=== PATIENT | female | born 1980 | race American Indian/Alaskan Native ===

== ENCOUNTER 2020-11-02 12:58 | Observation (INO) | payer MEDICARE ==
--- NOTE | 2020-11-02 13:02 | Emergency Department Report ---
HPI - General Time Seen by Provider: 11/02/20 12:59 - HPI HPI: This is a 39-year-old -[place] female presents to the emergency department via EMS from home with the complaint of slurred speech, left-sided facial droop, left-sided weakness and numbness. Apparently the patient was at [facility] yesterday for generalized weakness and some left arm numbness. EMS says that she was evaluated and discharged home with the diagnosis of anxiety. Family told EMS that she suddenly went "limp" about 30 minutes prior to the EMS call with these new symptoms. 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 Patient has never been to this facility previously. She did not receive anything in route with EMS. It does not sound like the patient will be a TPA candidate secondary to her anticoagulation, but a code stroke has been initiated. ED Past Medical Hx - Medications Home Medications: Home Medications Medication Instructions Recorded Confirmed Last Taken Type Famotidine [Pepcid] 20 mg PO BID 11/02/20 11/02/20 11/01/20 History LORazepam [Ativan] 0.5 mg PO Q6HR PRN 11/02/20 11/02/20 11/02/20 History Rivaroxaban [Xarelto] 20 mg PO QDAY 11/02/20 11/02/20 11/02/20 10:00 History Trazodone HCl [traZODone] 150 mg PO BID 11/02/20 11/02/20 11/01/20 History ED Review of Systems ROS: Stated complaint: STROKE Other details as noted in HPI Comment: All other systems reviewed and negative Constitutional: weakness. denies: chills, fever Eyes: denies: eye pain, vision change ENT: denies: ear pain, throat pain Respiratory: denies: cough, shortness of breath Cardiovascular: denies: chest pain, palpitations Gastrointestinal: denies: abdominal pain, vomiting Genitourinary: denies: dysuria, discharge Musculoskeletal: denies: back pain, arthralgia Skin: denies: rash, lesions Neurological: weakness, numbness, other (Facial droop, slurred speech) Physical Exam - Physical Exam Physical Exam: GENERAL: The patient is well-developed well-nourished. HENT: Normocephalic. Atraumatic. Patient has moist mucous membranes. EYES: Extraocular motions are intact. Pupils equal reactive to light bilaterally. NECK: Supple. Trachea is midline. CHEST/LUNGS: Clear to auscultation. There is no respiratory distress noted. HEART/CARDIOVASCULAR: Regular. There is no tachycardia. There is no murmur. ABDOMEN: Abdomen is soft, nontender. Patient has normal bowel sounds. There is no abdominal distention. SKIN: Skin is warm and dry. NEURO: The patient is awake, alert, and oriented. The patient is cooperative. Subjective decreased sensation to the left side of the face and left arm when compared to the right. There is left-sided nasolabial fold paresis. Dysa rthria. Significant left-sided weakness. MUSCULOSKELETAL: There is no tenderness or deformity. ED Course - Consultations Consultation #1: 11/02/20 13:39 Patient was seen by the telemedicine neurologist, Dr. Garcia. She agrees that the patient is not a TPA candidate as she is anticoagulated. Assuming negative CT angiography studies, the patient should be admitted for further stroke work- up including MRI. ED Medical Decision Making - Lab Data Result diagrams: 11/02/20 13:16 11/02/20 13:16 Lab Results 11/02/20 11/02/20 11/02/20 Range/Units 13:16 13:16 13:16 WBC 5.8 (4.5-11.0) K/mm3 RBC 4.77 (3.65-5.03) M/mm3 Hgb 13.6 (10.1-14.3) gm/dl Hct 39.4 (30.3-42.9) % MCV 83 (79-97) fl MCH 28 (28-32) pg MCHC 35 H (30-34) % RDW 17.6 H (13.2-15.2) % Plt Count 176 (140-440) K/mm3 Lymph % (Auto) 23.5 (13.4-35.0) % [place] % (Auto) 9.1 H (0.0-7.3) % Eos % (Auto) 1.5 (0.0-4.3) % Baso % (Auto) 0.5 (0.0-1.8) % Lymph # (Auto) 1.4 (1.2-5.4) K/mm3 [place] # (Auto) 0.5 (0.0-0.8) K/mm3 Eos # (Auto) 0.1 (0.0-0.4) K/mm3 Baso # (Auto) 0.0 (0.0-0.1) K/mm3 Seg Neutrophils % 65.4 (40.0-70.0) % Seg Neutrophils # 3.8 (1.8-7.7) K/mm3 PT 21.8 H (12.2-14.9) Sec. INR 1.84 H (0.87-1.13) APTT 34.8 (24.2-36.6) Sec. Thrombin Time 16.8 (15.1-19.6) Sec. Sodium 135 L (137-145) mmol/L Potassium 3.8 (3.6-5.0) mmol/L Chloride 103.0 (98-107) mmol/L Carbon Dioxide 22 (22-30) mmol/L Anion Gap 14 mmol/L BUN 10 (7-17) mg/dL Creatinine 0.6 (0.6-1.2) mg/dL Estimated GFR > 60 ml/min BUN/Creatinine Ratio 17 % Glucose 88 (65-100) mg/dL Calcium 8.9 (8.4-10.2) mg/dL Total Bilirubin 0.80 (0.1-1.2) mg/dL AST 17 (5-40) units/L ALT 11 (7-56) units/L Alkaline Phosphatase 45 (35-129) units/L Total Creatine Kinase 100 (30-135) units/L CK-MB (CK-2) < 1.0 (0.0-4.0) ng/mL CK-MB (CK-2) Rel Index 1.0 (0-4) Troponin T < 0.010 (0.00-0.029) ng/mL Total Protein 6.5 (6.3-8.2) g/dL Albumin 4.2 (3.9-5) g/dL Albumin/Globulin Ratio 1.8 % TSH (0.270-4.200) mlU/mL Plasma/Serum Alcohol (0-0.07) % 11/02/20 11/02/20 Range/Units 13:16 13:16 WBC (4.5-11.0) K/mm3 RBC (3.65-5.03) M/mm3 Hgb (10.1-14.3) gm/dl Hct (30.3-42.9) % MCV (79-97) fl MCH (28-32) pg MCHC (30-34) % RDW (13.2-15.2) % Plt Count (140-440) K/mm3 Lymph % (Auto) (13.4-35.0) % [place] % (Auto) (0.0-7.3) % Eos % (Auto) (0.0-4.3) % Baso % (Auto) (0.0-1.8) % Lymph # (Auto) (1.2-5.4) K/mm3 [place] # (Auto) (0.0-0.8) K/mm3 Eos # (Auto) (0.0-0.4) K/mm3 Baso # (Auto) (0.0-0.1) K/mm3 Seg Neutrophils % (40.0-70.0) % Seg Neutrophils # (1.8-7.7) K/mm3 PT (12.2-14.9) Sec. INR (0.87-1.13) APTT (24.2-36.6) Sec. Thrombin Time (15.1-19.6) Sec. Sodium (137-145) mmol/L Potassium (3.6-5.0) mmol/L Chloride (98-107) mmol/L Carbon Dioxide (22-30) mmol/L Anion Gap mmol/L BUN (7-17) mg/dL Creatinine (0.6-1.2) mg/dL Estimated GFR ml/min BUN/Creatinine Ratio % Glucose (65-100) mg/dL Calcium (8.4-10.2) mg/dL Total Bilirubin (0.1-1.2) mg/dL AST (5-40) units/L ALT (7-56) units/L Alkaline Phosphatase (35-129) units/L Total Creatine Kinase (30-135) units/L CK-MB (CK-2) (0.0-4.0) ng/mL CK-MB (CK-2) Rel Index (0-4) Troponin T (0.00-0.029) ng/mL Total Protein (6.3-8.2) g/dL Albumin (3.9-5) g/dL Albumin/Globulin Ratio % TSH 0.786 (0.270-4.200) mlU/mL Plasma/Serum Alcohol < 0.01 (0-0.07) % - EKG Data -: EKG Interpreted by Me EKG shows normal: sinus rhythm, axis, intervals, QRS complexes, ST-T waves Rate: normal - EKG Data When compared to previous EKG there are: previous EKG unavailable Interpretation: normal EKG - Radiology Data Radiology results: report reviewed NONENHANCED CT SCAN OF THE BRAIN: INDICATION: CODE STROKE LT SIDE WEAKNESS, FACIAL DROOP SLURRED SPEECH X1DAY [id number]. TECHNIQUE: Routine CT head without contrast. Sagittal and coronal reformatted images were obtained. All CT scans at this location are performed using CT dose reduction for ALARA by means of automated exposure control. COMPARISON: None. FINDINGS: BRAIN / INTRACRANIAL CONTENTS: Hemorrhage: No intracranial hemorrhage; no subarachnoid hemorrhage Stroke mimics: No subdural or epidural hematoma or space taking lesion Acute/subacute territorial infarction: Li-white matter interface: No blurring; normal Insular cortex: Normal Basal ganglia: Normal Wedge shaped parenchymal low density area: Not present Cortical sulci: Not effaced Lacunar infarctions: No acute lacunae Vasculopathy: Dense middle cerebral artery sign: Not present Internal carotid artery terminus: Normal Basilar artery:Normal Middle cerebral artery branches in the sylvian fissure (Dot sign): Normal Calcified embolus: Not present ASPECT score: 10 Chronic lesions:None White matter: Periventricular and deep hemispheric white matter normal Craniocervical junction: No significant abnormality Orbits: No significant abnormality Paranasal sinuses/mastoids:No significant abnormality Additional findings: None IMPRESSION: Intracerebral hemorrhage; no stroke mimics No acute subacute infarction CT angio head INDICATION / CLINICAL INFORMATION: 39 years Female; stroke sx. TECHNIQUE: Thin cut axial images obtained through the head during IV bolus contrast administration. Sagittal, coronal, and 3 plane MIP reconstructions performed by the technologist. NASCET type criteria used evaluate stenoses. Automated exposure control utilized for radiation reduction purposes. COMPARISON: None available. FINDINGS: INTERNAL CAROTID ARTERIES: No significant narrowing appreciated. VERTEBROBASILAR SYSTEM: No significant narrowing appreciated. DISTAL BRANCHES: Distal branches of the anterior, middle, and posterior cerebral arteries are fairly symmetric in appearance and number. ANEURYSM: None identified. ADDITIONAL FINDINGS: Remainder of the surrounding soft tissues are grossly normal. IMPRESSION: No significant abnormality on this CTA of the head. CT angio neck HISTORY: stroke sx COMPARISON: None. TECHNIQUE: Routine CTA of the neck is performed. 3-D/MIP reformats were postprocessed. Percentage stenosis is determined by direct quantitative measurements of diseased internal carotid artery diameter compared with normal distal internal carotid artery reference segments or by criteria similar to NASCET where applicable. All CT scans at this location are performed using CT dose reduction for ALARA by means of automated exposure control. FINDINGS: Aortic arch: No significant abnormality. Cervical vertebral arteries: No occlusion or hemodynamically significant stenosis. Common Carotid arteries: No occlusion or hemodynamically significant stenosis. Internal carotid arteries: No occlusion or hemodynamically significant stenosis. Additional findings: Mild paraseptal emphysema. IMPRESSION: 1. No occlusion or significant stenosis. - Medical Decision Making This patient presents to the emergency department with a complaint of left-sided weakness and numbness, left-sided facial droop, slurred speech. Patient had some numbness to the left arm throughout yesterday, but the rest of the symptoms started about 30 minutes prior to presentation. However, given the patient's history of multiple PE and DVT and her anticoagulation on Xarelto, the patient is not a TPA candidate. CT of the head without contrast did not show any hemorrhage, large vessel occlusion, or any other acute process. The patient also had a CT angiography of the head and neck that did not show any thrombus, significant stenosis, or any other acute process as well. The patient was seen by the telemedicine neurologist who agrees that the patient is not a TPA candidate and gave the patient an NIH stroke scale of 7. She recommends admission for MRI and further stroke work-up. The patient's labs have been mostly unremarkable including CBC, metabolic panel, blood alcohol level, normal thyroid function. Patient will be admitted to the hospital for further evaluation and treatment was accepted for admission by the hospitalist, Dr. Butcher. Critical Care Time: Yes Critical care time in (mins) excluding proc time.: 31 Critical care attestation.: If time is entered above; I have spent that time in minutes in the direct care of this critically ill patient, excluding procedure time. Critical care time spent on this patient in doing her initial evaluation, multiple reevaluations, o rdering and interpretation of labs and imaging, discussion with the telemedicine neurologist, and multiple discussions with the patient. Critical Care Time: 31 minutes ED Disposition Clinical Impression: Left-sided weakness, Dysarthria, Stroke-like symptoms Hypertension Qualifiers: Hypertension type: essential hypertension Qualified Code(s): I10 - Essential (primary) hypertension Disposition: DC-01 TO HOME OR SELFCARE Is pt being admited?: No Condition: Serious Time of Disposition: 15:03
--- NOTE | 2020-11-02 13:31 | Cat Scan Report ---
NONENHANCED CT SCAN OF THE BRAIN: INDICATION: CODE STROKE LT SIDE WEAKNESS, FACIAL DROOP SLURRED SPEECH X1DAY [id number]. TECHNIQUE: Routine CT head without contrast. Sagittal and coronal reformatted images were obtained. A ll CT scans at this location are performed using CT dose reduction for ALARA by means of automated ex posure control. COMPARISON: None. FINDINGS: BRAIN / INTRACRANIAL CONTENTS: Hemorrhage: No intracranial hemorrhage; no subarachnoid hemorrhage Stroke mimics: No subdural or epidural hematoma or space taking lesion Acute/subacute territorial infarction: Li-white matter interface: No blurring; normal Insular cortex: Normal Basal ganglia: Normal Wedge shaped parenchymal low density area: Not present Cortical sulci: Not effaced Lacunar infarctions: No acute lacunae Vasculopathy: Dense middle cerebral artery sign: Not present Internal carotid artery terminus: Normal Basilar artery:Normal Middle cerebral artery branches in the sylvian fissure (Dot sign): Normal Calcified embolus: Not present ASPECT score: 10 Chronic lesions:None White matter: Periventricular and deep hemispheric white matter normal Craniocervical junction: No significant abnormality Orbits: No significant abnormality Paranasal sinuses/mastoids:No significant abnormality Additional findings: None IMPRESSION: Intracerebral hemorrhage; no stroke mimics No acute subacute infarction This exam was performed as part of a code stroke protocol. The exam was completed at [facility] on 11/02/2020 12:21 PM. The exam was reviewed at 12:25 PM and ER physician was notifi ed at 12:26 PM. Signer Name: Virgilio Lowe MD Signed: 11/02/2020 1:26 PM Workstation Name: [id number]
[2020-11-02 13:38] LABS: Basophils % (Auto) 0.5 % (0.0-1.8); Eosinophils # (Auto) 0.1 K/mm3 (0.0-0.4); Eosinophils % (Auto) 1.5 % (0.0-4.3); Hematocrit 39.4 % (30.3-42.9); Hemoglobin 13.6 gm/dl (10.1-14.3); Lymphocytes # (Auto) 1.4 K/mm3 (1.2-5.4); Lymphocytes % (Auto) 23.5 % (13.4-35.0); Mean Corpuscular HGB Conc 35 % (30-34); Mean Corpuscular Volume 83 fl (79-97); Monocytes # (Auto) 0.5 K/mm3 (0.0-0.8); Monocytes % (Auto) 9.1 % (0.0-7.3); Platelet Count 176 K/mm3 (140-440); Red Blood Count 4.77 M/mm3 (3.65-5.03); Red Cell Distribution Width 17.6 % (13.2-15.2)
--- NOTE | 2020-11-02 13:38 | Cat Scan Report ---
CT angio head INDICATION / CLINICAL INFORMATION: 39 years Female; stroke sx. TECHNIQUE: Thin cut axial images obtained through the head during IV bolus contrast administration. S agittal, coronal, and 3 plane MIP reconstructions performed by the technologist. NASCET type criteria used evaluate stenoses. Automated exposure control utilized for radiation reduction purposes. COMPARISON: None available. FINDINGS: INTERNAL CAROTID ARTERIES: No significant narrowing appreciated. VERTEBROBASILAR SYSTEM: No significant narrowing appreciated. DISTAL BRANCHES: Distal branches of the anterior, middle, and posterior cerebral arteries are fairly symmetric in appearance and number. ANEURYSM: None identified. ADDITIONAL FINDINGS: Remainder of the surrounding soft tissues are grossly normal. IMPRESSION: No significant abnormality on this CTA of the head. Signer Name: Josue Ferris MD, III Signed: 11/02/2020 1:34 PM Workstation Name: [id number]
--- NOTE | 2020-11-02 13:49 | Cat Scan Report ---
CT angio neck HISTORY: stroke sx COMPARISON: None. TECHNIQUE: Routine CTA of the neck is performed. 3-D/MIP reformats were postprocessed. Percentage st enosis is determined by direct quantitative measurements of diseased internal carotid artery diameter compared with normal distal internal carotid artery reference segments or by criteria similar to SAMMY CET where applicable. All CT scans at this location are performed using CT dose reduction for ALARA b y means of automated exposure control. FINDINGS: Aortic arch: No significant abnormality. Cervical vertebral arteries: No occlusion or hemodynamically significant stenosis. Common Carotid arteries: No occlusion or hemodynamically significant stenosis. Internal carotid arteries: No occlusion or hemodynamically significant stenosis. Additional findings: Mild paraseptal emphysema. IMPRESSION: 1. No occlusion or significant stenosis. Signer Name: Adan Goss MD Signed: 11/02/2020 1:44 PM Workstation Name: [id number]
[2020-11-02 13:55] LABS: INR 1.84 (0.87-1.13); Partial Thromboplastin Time 34.8 Sec. (24.2-36.6); Thrombin Time 16.8 Sec. (15.1-19.6)
[2020-11-02 13:56] LABS: Alanine Aminotransferase 11 units/L (7-56); Albumin 4.2 g/dL (3.9-5); Blood Urea Nitrogen 10 mg/dL (7-17); Calcium 8.9 mg/dL (8.4-10.2); Hemolysis Index 9
[2020-11-02 13:57] LABS: BUN/Creatinine Ratio 17; Creatine Kinase MB < 1.0 ng/mL (0.0-4.0)
[2020-11-02] MEDS ORDERED: MORPHINE 4 MG/1 ML INJ IV ONE (14:42)
[2020-11-02] MEDS ORDERED: ASPIRIN 81 MG TAB CHEW PO ONE (15:08)
--- NOTE | 2020-11-02 15:23 | Emergency Department Report ---
Blank Doc - Documentation Documentation: [facility] Consult Note # Demographics Consult Type: Acute Stroke Level 2 (4.5-24 hrs) Patient Location: Emergency Room First Name: Carolyn Last Name: Darryl Date of : 1980 Age: 39 Gender: Female Time of Initial Page ( Time): 11/02/2020, 13:00 Time of Return Call ( Time): 11/02/2020, 13:01 # HPI History: 39yo F presents after being at a different hospital yesterday fo left arm numbness and gen weakness. CT done, then d/c. diagnosed with anxiety. then today was noted to "go limp". having left sided weakness and numbness, dysarthria. pt reprots she felt like she was having difficulty breathing. she had a headache. Last Known Normal: I have collected independent history specific to time last normal or last known well. We have collaborated with the provider and at this time, we have the most current timeline with the information that is available. # Scores Time of exam and NIHSS (): 11/02/2020, 13:27 Level of Consciousness 1a: [0] = Alert; keenly responsive LOC Questions 1b: [0] = Answers both questions correctly LOC Commands 1c: [0] = Performs both tasks correctly Best Gaze 2: [0] = Normal Visual 3: [0] = No visual loss Facial Palsy 4: [2] = Partial paralysis Motor Arm Left 5a: [2] = Some effort against gravity Motor Arm Right 5b: [0] = No drift Motor Leg Left 6a: [2] = Some effort against gravity Motor Leg Right 6b: [0] = No drift Limb Ataxia 7: [0] = Absent Sensory 8: [1] = [id number] sensory loss Best Language 9: [0] = No aphasia Dysarthria 10: [0] = Normal Extinction and Inattention 11: [0] = No abnormality NIHSS Total: 7 # Exam Motor: appears to given inconsistent effort in the left arm and leg. strong left leg pushing into the bed when lifting her right leg. # PMH-FH-SH Past Medical History: DVT/PE Medications: NOAC # Assessment Impression: Stroke Mimic this is not a TIA if MRI negative # Plan Thrombolytic/Intervention: NOT IV Thrombolytic or IA Intervention Thrombolytic Exclusion: > 4.5 hours Intraarterial Exclusion: clinically consistent with small vessel disease Imaging: (urgency: routine): MRI Brain with AND without contrast Other: would not pursue stroke work-up if MRI is negative I have discussed my recommendations with the referring provider Additional Recommendations: Further work-up based on MRI results # Logistics Telemedicine: Interactive 2 way audio and visual telecommunication technology was utilized during this visit Electronically signed at 11/02/2020 13:35 (Eastern Time) by Daisha Garcia DO
[2020-11-02] MEDS ORDERED: IBUPROFEN 600 MG TAB PO PRN (22:24)
[2020-11-03] MEDS ORDERED: LORazepam 0.5 MG TAB PO PRN (00:13)
[2020-11-03] MEDS ORDERED: oxyCODONE /ACETAMINOPHEN 5-325MG TAB PO PRN (00:15)
[2020-11-03] MEDS ORDERED: ONDANSETRON 4 MG/2 ML INJ IV PRN (00:15)
[2020-11-03] MEDS ORDERED: ACETAMINOPHEN 325 MG TAB PO PRN (00:15)
[2020-11-03] MEDS: traZODone 100 MG TAB PO SCH ×3 (00:25→21:27)
[2020-11-03] MEDS: FAMOTIDINE 20 MG TAB PO SCH ×3 (00:25→21:26)
[2020-11-03] MEDS: HYDROmorphone 1 MG/1 ML INJ IV PRN ×3 (00:40→18:16)
[2020-11-03] MEDS: NACL 0.45%/KCL 20 MEQ 20 MEQ/1,000 ML BAG IV SCH ×2 (00:56→10:49)
[2020-11-03 01:32] LABS: Bacteria,Urine 2+ /HPF (Negative); Bilirubin,Urine NEG (Negative); Blood,Urine NEG (Negative); Color,Urine Yellow (Yellow); Protein,Urine <15 mg/dL mg/dL (Negative); RBC,Urine < 1.0 /HPF (0.0-6.0)
[2020-11-03 01:39] LABS: Amphetamine Screen,Urine Negative; Benzodiazepines Screen,Urine Negative; Cocaine Screen,Urine Negative; Methadone Screen,Urine Negative; Opiate Screen,Urine Negative
[2020-11-03 01:51] LABS: Cannabinoid Screen,Urine Positive
[2020-11-03 05:04] LABS: Basophils % (Auto) 0.5 % (0.0-1.8); Eosinophils # (Auto) 0.1 K/mm3 (0.0-0.4); Eosinophils % (Auto) 2.4 % (0.0-4.3); Hematocrit 39.5 % (30.3-42.9); Hemoglobin 13.6 gm/dl (10.1-14.3); Lymphocytes # (Auto) 2.1 K/mm3 (1.2-5.4); Mean Corpuscular HGB Conc 34 % (30-34); Mean Corpuscular Volume 84 fl (79-97); Monocytes # (Auto) 0.6 K/mm3 (0.0-0.8); Monocytes % (Auto) 11.7 % (0.0-7.3); Platelet Count 173 K/mm3 (140-440); Red Cell Distribution Width 17.9 % (13.2-15.2)
[2020-11-03 05:30] LABS: Alanine Aminotransferase 12 units/L (7-56); Albumin 4.2 g/dL (3.9-5); Blood Urea Nitrogen 10 mg/dL (7-17); Hemolysis Index 22
[2020-11-03 05:37] LABS: BUN/Creatinine Ratio 17
--- NOTE | 2020-11-03 07:23 | History and Physical Report ---
History of Present Illness Date of examination: 11/02/20 Date of admission: 11/02/20 15:03 Chief complaint: Left-sided weakness since yesterday afternoon. History of present illness: 39-year-old female with no significant past medical history except GERD comes in for left-sided facial droop and left-sided weakness and numbness since yesterday. Patient went to [facility] and was discharged after being evaluated. Patient comes back to [facility] saying that she has a walking with difficulty. No fever or chills. No history of strokes or coronary artery disease the past. Patient also had slurred speech since yesterday. Intermittent in nature. No diplopia no nasal regurgitation of fluids. No seizures. Review of Systems ROS: Stated complaint: STROKE Other details as noted in HPI Comment: All other systems reviewed and negative Constitutional: weakness. denies: chills, fever Eyes: denies: eye pain, vision change ENT: denies: ear pain, throat pain Respiratory: denies: cough, shortness of breath Cardiovascular: denies: chest pain, palpitations Gastrointestinal: denies: abdominal pain, vomiting Genitourinary: denies: dysuria, discharge Musculoskeletal: denies: back pain, arthralgia Skin: denies: rash, lesions Neurological: weakness, numbness, other (Facial droop, slurred speech) Past History Past Medical History: GERD, other (Generalized anxiety disorder and depression.) Past Surgical History: No surgical history Social history: lives with family, full code Family history: hypertension Medications and Allergies Allergies Allergy/AdvReac Type Severity Reaction Status Date / Time No Known Allergies Allergy Unverified 11/02/20 13:51 Home Medications Medication Instructions Recorded Confirmed Last Taken Type Famotidine [Pepcid] 20 mg PO BID 11/02/20 11/02/20 11/01/20 History LORazepam [Ativan] 0.5 mg PO Q6HR PRN 11/02/20 11/02/20 11/02/20 History Rivaroxaban [Xarelto] 20 mg PO QDAY 11/02/20 11/02/20 11/02/20 10:00 History Trazodone HCl [traZODone] 150 mg PO BID 11/02/20 11/02/20 11/01/20 History Active Meds: Active Medications Acetaminophen (Acetaminophen 325 Mg Tab) 650 mg PO Q4H PRN PRN Reason: Pain MILD(1-3)/Fever >100.5/ROBLES Famotidine (Famotidine 20 Mg Tab) 20 mg PO BID [facility] Last Admin: 11/03/20 00:25 Dose: 20 mg Documented by: Hydromorphone HCl (Hydromorphone 1 Mg/1 Ml Inj) 0.5 mg IV Q3H PRN PRN Reason: Pain , Severe (7-10) Last Admin: 11/03/20 00:40 Dose: 0.5 mg Documented by: Potassium Chloride/Sodium Chloride (Ns 0.45/Kcl 20meq) 20 meq in 1,000 mls @ 100 mls/hr IV DIRECT [facility] Last Admin: 11/03/20 00:56 Dose: 100 mls/hr Documented by: Ibuprofen (Ibuprofen 600 Mg Tab) 600 mg PO Q6H PRN PRN Reason: Pain, Mild (1-3) Last Admin: 11/02/20 22:36 Dose: 600 mg Documented by: Lorazepam (Lorazepam 0.5 Mg Tab) 0.5 mg PO Q6H PRN PRN Reason: Anxiety Ondansetron HCl (Ondansetron 4 Mg/2 Ml Inj) 4 mg IV Q8H PRN PRN Reason: Nausea And Vomiting Oxycodone/Acetaminophen (Oxycodone /Acetaminophen 5-325mg Tab) 1 tab PO Q6H PRN PRN Reason: Pain, Moderate (4-6) Rivaroxaban (Rivaroxaban 20 Mg Tab) 20 mg PO QDAY [facility] Sodium Chloride (Sodium Chloride 0.9% 10 Ml Flush Syringe) 10 ml IV BID [facility] Last Admin: 11/03/20 00:59 Dose: 10 ml Documented by: Sodium Chloride (Sodium Chloride 0.9% 10 Ml Flush Syringe) 10 ml IV PRN PRN PRN Reason: LINE FLUSH Trazodone HCl (Trazodone 100 Mg Tab) 150 mg PO BID [facility] Last Admin: 11/03/20 00:25 Dose: 150 mg Documented by: Exam - Constitutional Vitals: Temp Pulse Resp BP Pulse Ox 98.5 F 65 18 125/83 100 11/03/20 03:45 11/03/20 03:45 11/03/20 03:45 11/03/20 03:45 11/03/20 03:45 General appearance: Present: no acute distress, well-nourished - EENT Eyes: Present: PERRL ENT: hearing intact, clear oral mucosa - Neck Neck: Present: supple, normal ROM - Respiratory Respiratory effort: normal Respiratory: bilateral: CTA - Cardiovascular Heart rate: 78 Rhythm: regular Heart Sounds: Present: S1 & S2. Absent: rub, click - Extremities Extremities: pulses symmetrical, No edema Peripheral Pulses: within normal limits - Abdominal General gastrointestinal: Present: soft, non-tender, non-distended, normal bowel sounds Female genitourinary: Present: normal - Integumentary Integumentary: Present: clear, warm, dry - Musculoskeletal Musculoskeletal: left sided weakness - Psychiatric Psychiatric: appropriate mood/affect, intact judgment & insight - Neurologic Neurologic: CNII-XII intact, focal deficits (Left-sided weakness present. 4/5 power in both left upper and left lower extremity.), moves all extremities - Allied Health Allied health notes reviewed: nursing, case management HEART Score - HEART Score Troponin: Troponin T < 0.010 ng/mL (0.00-0.029) 11/02/20 13:16 Results - Labs CBC & Chem 7: 11/03/20 04:32 11/03/20 04:32 Labs: Laboratory Last Values WBC 5.0 K/mm3 (4.5-11.0) 11/03/20 04:32 RBC 4.70 M/mm3 (3.65-5.03) 11/03/20 04:32 Hgb 13.6 gm/dl (10.1-14.3) 11/03/20 04:32 Hct 39.5 % (30.3-42.9) 11/03/20 04:32 MCV 84 fl (79-97) 11/03/20 04:32 MCH 29 pg (28-32) 11/03/20 04:32 MCHC 34 % (30-34) 11/03/20 04:32 RDW 17.9 % (13.2-15.2) H 11/03/20 04:32 Plt Count 173 K/mm3 (140-440) 11/03/20 04:32 Lymph % (Auto) 42.0 % (13.4-35.0) H 11/03/20 04:32 [place] % (Auto) 11.7 % (0.0-7.3) H 11/03/20 04:32 Eos % (Auto) 2.4 % (0.0-4.3) 11/03/20 04:32 Baso % (Auto) 0.5 % (0.0-1.8) 11/03/20 04:32 Lymph # (Auto) 2.1 K/mm3 (1.2-5.4) 11/03/20 04:32 [place] # (Auto) 0.6 K/mm3 (0.0-0.8) 11/03/20 04:32 Eos # (Auto) 0.1 K/mm3 (0.0-0.4) 11/03/20 04:32 Baso # (Auto) 0.0 K/mm3 (0.0-0.1) 11/03/20 04:32 Seg Neutrophils % 43.4 % (40.0-70.0) 11/03/20 04:32 Seg Neutrophils # 2.2 K/mm3 (1.8-7.7) 11/03/20 04:32 PT 21.8 Sec. (12.2-14.9) H 11/02/20 13:16 INR 1.84 (0.87-1.13) H 11/02/20 13:16 APTT 34.8 Sec. (24.2-36.6) 11/02/20 13:16 Thrombin Time 16.8 Sec. (15.1-19.6) 11/02/20 13:16 Sodium 140 mmol/L (137-145) 11/03/20 04:32 Potassium 4.1 mmol/L (3.6-5.0) 11/03/20 04:32 Chloride 105.6 mmol/L (98-107) 11/03/20 04:32 Carbon Dioxide 22 mmol/L (22-30) 11/03/20 04:32 Anion Gap 17 mmol/L 11/03/20 04:32 BUN 10 mg/dL (7-17) 11/03/20 04:32 Creatinine 0.6 mg/dL (0.6-1.2) 11/03/20 04:32 Estimated GFR > 60 ml/min 11/03/20 04:32 BUN/Creatinine Ratio 17 % 11/03/20 04:32 Glucose 81 mg/dL (65-100) 11/03/20 04:32 Calcium 9.0 mg/dL (8.4-10.2) 11/03/20 04:32 Total Bilirubin 0.60 mg/dL (0.1-1.2) 11/03/20 04:32 AST 15 units/L (5-40) 11/03/20 04:32 ALT 12 units/L (7-56) 11/03/20 04:32 Alkaline Phosphatase 43 units/L (35-129) 11/03/20 04:32 Total Creatine Kinase 100 units/L (30-135) 11/02/20 13:16 CK-MB (CK-2) < 1.0 ng/mL (0.0-4.0) 11/02/20 13:16 CK-MB (CK-2) Rel Index 1.0 (0-4) 11/02/20 13:16 Troponin T < 0.010 ng/mL (0.00-0.029) 11/02/20 13:16 Total Protein 6.1 g/dL (6.3-8.2) L 11/03/20 04:32 Albumin 4.2 g/dL (3.9-5) 11/03/20 04:32 Albumin/Globulin Ratio 2.2 % 11/03/20 04:32 TSH 0.786 mlU/mL (0.270-4.200) 11/02/20 13:16 Urine Color Yellow (Yellow) 11/03/20 01:02 Urine Turbidity Clear (Clear) 11/03/20 01:02 Urine pH 6.0 (5.0-7.0) 11/03/20 01:02 Ur Specific [place] 1.020 (1.003-1.030) 11/03/20 01:02 Urine Protein <15 mg/dl mg/dL (Negative) 11/03/20 01:02 Urine Glucose (UA) Neg mg/dL (Negative) 11/03/20 01:02 Urine Ketones Tr mg/dL (Negative) 11/03/20 01:02 Urine Blood Neg (Negative) 11/03/20 01:02 Urine Nitrite Neg (Negative) 11/03/20 01:02 Urine Bilirubin Neg (Negative) 11/03/20 01:02 Urine Urobilinogen 4.0 mg/dL (<2.0) 11/03/20 01:02 Ur Leukocyte Esterase Neg (Negative) 11/03/20 01:02 Urine WBC (Auto) 1.0 /HPF (0.0-6.0) 11/03/20 01:02 Urine RBC (Auto) < 1.0 /HPF (0.0-6.0) 11/03/20 01:02 U Epithel Cells (Auto) 5.0 /HPF (0-13.0) 11/03/20 01:02 Urine Bacteria (Auto) 2+ /HPF (Negative) 11/03/20 01:02 Urine Opiates Screen Negative 11/03/20 01:02 Urine Methadone Screen Negative 11/03/20 01:02 Ur Barbiturates Screen Negative 11/03/20 01:02 Ur Phencyclidine Scrn Negative 11/03/20 01:02 Ur Amphetamines Screen Negative 11/03/20 01:02 U Benzodiazepines Scrn Negative 11/03/20 01:02 Urine Cocaine Screen Negative 11/03/20 01:02 U Marijuana (THC) Screen Positive 11/03/20 01:02 Drugs of Abuse Note Disclamer 11/03/20 01:02 Plasma/Serum Alcohol < 0.01 % (0-0.07) 11/02/20 13:16 Short CBC 11/02/20 11/03/20 Range/Units 13:16 04:32 WBC 5.8 5.0 (4.5-11.0) K/mm3 Hgb 13.6 13.6 (10.1-14.3) gm/dl Hct 39.4 39.5 (30.3-42.9) % Plt Count 176 173 (140-440) K/mm3 BMP 11/02/20 11/03/20 13:16 04:32 Sodium 135 L 140 Potassium 3.8 4.1 Chloride 103.0 105.6 Carbon Dioxide 22 22 BUN 10 10 Creatinine 0.6 0.6 Glucose 88 81 Calcium 8.9 9.0 Cardiac Enzymes 11/02/20 Range/Units 13:16 Total Creatine Kinase 100 (30-135) units/L CK-MB (CK-2) < 1.0 (0.0-4.0) ng/mL Troponin T < 0.010 (0.00-0.029) ng/mL Liver Function 11/02/20 11/03/20 Range/Units 13:16 04:32 Total Bilirubin 0.80 0.60 (0.1-1.2) mg/dL AST 17 15 (5-40) units/L ALT 11 12 (7-56) units/L Alkaline Phosphatase 45 43 (35-129) units/L Albumin 4.2 4.2 (3.9-5) g/dL Urine 11/03/20 Range/Units 01:02 Urine Color Yellow (Yellow) Urine pH 6.0 (5.0-7.0) Ur Specific [place] 1.020 (1.003-1.030) Urine Protein <15 mg/dl (Negative) mg/dL Urine Glucose (UA) Neg (Negative) mg/dL Assessment and Plan Advance Directives: Yes (Full code) VTE prophylaxis?: Chemical Plan of care discussed with patient/family: Yes - Patient Problems (1) Acute CVA (cerebrovascular accident) Current Visit: Yes Status: Acute Plan to address problem: Differential diagnosis of TIA CVA work-up MRI brain could not be ordered MRI brain to be ordered by the primary care team/neurology Echocardiogram and carotid duplex scan ordered Patient initiated on high intensity statins (2) GERD (gastroesophageal reflux disease) Current Visit: Yes Status: Chronic Qualifiers: Esophagitis presence: without esophagitis Qualified Code(s): K21.9 - Gastro-esophageal reflux disease without esophagitis Plan to address problem: On famotidine (3) Depression Current Visit: Yes Status: Chronic Plan to address problem: On trazodone (4) DVT prophylaxis Current Visit: Yes Status: Acute Plan to address problem: On heparin and GI prophylaxis
--- NOTE | 2020-11-03 09:14 | Electrocardiograph Report ---
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
--- NOTE | 2020-11-03 09:32 | Progress Note ---
Assessment and Plan Assessment and plan: CT head report; intracerebral hemorrhage???, Will check with radiology --Possible acute CVA Current Visit: Yes Status: Acute Plan to address problem: Differential diagnosis of TIA CVA work-up in progress MRI brain could not be ordered MRI brain to be ordered by the primary care team/neurology Echocardiogram and carotid duplex scan ordered Patient initiated on high intensity statins --History of PE and DVT; 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 Psych consult if needed --Obesity; BMI 37.1 Current Visit: Yes Status: Chronic Patient needs weight reduction --DVT prophylaxis Current Visit: Yes Status: Acute . Plan to address problem: On heparin and GI prophylaxis Follow neuro work-up, neurology evaluation recommendations Physical therapy occupational therapy rehab We will closely monitor the patient and adjust management as needed History Interval history: I seen and examined the patient at the bedside Patient's chart and medications reviewed Patient was admitted with neuro symptoms not a candidate for TPA CT head without contrast, some intracerebral hemorrhage no infarcts Patient feels better complains of left-sided weakness Vital signs noted Hospitalist Physical - Constitutional Vitals: Temp Pulse Resp BP Pulse Ox 98.5 F 65 18 125/83 97 11/03/20 03:45 11/03/20 03:45 11/03/20 07:00 11/03/20 03:45 11/03/20 07:00 General appearance: Present: no acute distress, well-nourished, other (Complaints of left-sided weakness) - EENT Eyes: Present: PERRL, EOM intact - Neck Neck: Present: supple, normal ROM - Respiratory Respiratory effort: normal Respiratory: bilateral: diminished, negative: rales, rhonchi, wheezing - Cardiovascular Rhythm: regular Heart Sounds: Present: S1 & S2 - Extremities Extremities: no ischemia, No edema - Abdominal General gastrointestinal: soft, non-tender, non-distended, normal bowel sounds - Integumentary Integumentary: Present: clear, warm - Psychiatric Psychiatric: appropriate mood/affect, cooperative - Neurologic Neurologic: other (Left-sided weakness motor power 4-5 over 5 left side) HEART Score - HEART Score Troponin: Troponin T < 0.010 ng/mL (0.00-0.029) 11/02/20 13:16 Results - Labs CBC & Chem 7: 11/03/20 04:32 11/03/20 04:32 Labs: Laboratory Last Values WBC 5.0 K/mm3 (4.5-11.0) 11/03/20 04:32 RBC 4.70 M/mm3 (3.65-5.03) 11/03/20 04:32 Hgb 13.6 gm/dl (10.1-14.3) 11/03/20 04:32 Hct 39.5 % (30.3-42.9) 11/03/20 04:32 MCV 84 fl (79-97) 11/03/20 04:32 MCH 29 pg (28-32) 11/03/20 04:32 MCHC 34 % (30-34) 11/03/20 04:32 RDW 17.9 % (13.2-15.2) H 11/03/20 04:32 Plt Count 173 K/mm3 (140-440) 11/03/20 04:32 Lymph % (Auto) 42.0 % (13.4-35.0) H 11/03/20 04:32 [place] % (Auto) 11.7 % (0.0-7.3) H 11/03/20 04:32 Eos % (Auto) 2.4 % (0.0-4.3) 11/03/20 04:32 Baso % (Auto) 0.5 % (0.0-1.8) 11/03/20 04:32 Lymph # (Auto) 2.1 K/mm3 (1.2-5.4) 11/03/20 04:32 [place] # (Auto) 0.6 K/mm3 (0.0-0.8) 11/03/20 04:32 Eos # (Auto) 0.1 K/mm3 (0.0-0.4) 11/03/20 04:32 Baso # (Auto) 0.0 K/mm3 (0.0-0.1) 11/03/20 04:32 Seg Neutrophils % 43.4 % (40.0-70.0) 11/03/20 04:32 Seg Neutrophils # 2.2 K/mm3 (1.8-7.7) 11/03/20 04:32 PT 21.8 Sec. (12.2-14.9) H 11/02/20 13:16 INR 1.84 (0.87-1.13) H 11/02/20 13:16 APTT 34.8 Sec. (24.2-36.6) 11/02/20 13:16 Thrombin Time 16.8 Sec. (15.1-19.6) 11/02/20 13:16 Sodium 140 mmol/L (137-145) 11/03/20 04:32 Potassium 4.1 mmol/L (3.6-5.0) 11/03/20 04:32 Chloride 105.6 mmol/L (98-107) 11/03/20 04:32 Carbon Dioxide 22 mmol/L (22-30) 11/03/20 04:32 Anion Gap 17 mmol/L 11/03/20 04:32 BUN 10 mg/dL (7-17) 11/03/20 04:32 Creatinine 0.6 mg/dL (0.6-1.2) 11/03/20 04:32 Estimated GFR > 60 ml/min 11/03/20 04:32 BUN/Creatinine Ratio 17 % 11/03/20 04:32 Glucose 81 mg/dL (65-100) 11/03/20 04:32 Hemoglobin A1c 3.9 % (4-6) L 11/03/20 04:32 Calcium 9.0 mg/dL (8.4-10.2) 11/03/20 04:32 Total Bilirubin 0.60 mg/dL (0.1-1.2) 11/03/20 04:32 AST 15 units/L (5-40) 11/03/20 04:32 ALT 12 units/L (7-56) 11/03/20 04:32 Alkaline Phosphatase 43 units/L (35-129) 11/03/20 04:32 Total Creatine Kinase 100 units/L (30-135) 11/02/20 13:16 CK-MB (CK-2) < 1.0 ng/mL (0.0-4.0) 11/02/20 13:16 CK-MB (CK-2) Rel Index 1.0 (0-4) 11/02/20 13:16 Troponin T < 0.010 ng/mL (0.00-0.029) 11/02/20 13:16 Total Protein 6.1 g/dL (6.3-8.2) L 11/03/20 04:32 Albumin 4.2 g/dL (3.9-5) 11/03/20 04:32 Albumin/Globulin Ratio 2.2 % 11/03/20 04:32 TSH 0.786 mlU/mL (0.270-4.200) 11/02/20 13:16 Urine Color Yellow (Yellow) 11/03/20 01:02 Urine Turbidity Clear (Clear) 11/03/20 01:02 Urine pH 6.0 (5.0-7.0) 11/03/20 01:02 Ur Specific [place] 1.020 (1.003-1.030) 11/03/20 01:02 Urine Protein <15 mg/dl mg/dL (Negative) 11/03/20 01:02 Urine Glucose (UA) Neg mg/dL (Negative) 11/03/20 01:02 Urine Ketones Tr mg/dL (Negative) 11/03/20 01:02 Urine Blood Neg (Negative) 11/03/20 01:02 Urine Nitrite Neg (Negative) 11/03/20 01:02 Urine Bilirubin Neg (Negative) 11/03/20 01:02 Urine Urobilinogen 4.0 mg/dL (<2.0) 11/03/20 01:02 Ur Leukocyte Esterase Neg (Negative) 11/03/20 01:02 Urine WBC (Auto) 1.0 /HPF (0.0-6.0) 11/03/20 01:02 Urine RBC (Auto) < 1.0 /HPF (0.0-6.0) 11/03/20 01:02 U Epithel Cells (Auto) 5.0 /HPF (0-13.0) 11/03/20 01:02 Urine Bacteria (Auto) 2+ /HPF (Negative) 11/03/20 01:02 Urine Opiates Screen Negative 11/03/20 01:02 Urine Methadone Screen Negative 11/03/20 01:02 Ur Barbiturates Screen Negative 11/03/20 01:02 Ur Phencyclidine Scrn Negative 11/03/20 01:02 Ur Amphetamines Screen Negative 11/03/20 01:02 U Benzodiazepines Scrn Negative 11/03/20 01:02 Urine Cocaine Screen Negative 11/03/20 01:02 U Marijuana (THC) Screen Positive 11/03/20 01:02 Drugs of Abuse Note Disclamer 11/03/20 01:02 Plasma/Serum Alcohol < 0.01 % (0-0.07) 11/02/20 13:16 Active Medications - Current Medications Current Medications: Generic Name Dose Route Start Last Admin Trade Name Freq PRN Reason Stop Dose Admin Acetaminophen 650 mg 11/03/20 00:15 Acetaminophen 325 Mg Tab PO Q4H PRN Pain MILD(1-3)/Fever >100.5/ROBLES Famotidine 20 mg 11/03/20 01:00 11/03/20 00:25 Famotidine 20 Mg Tab PO 20 mg BID LUCIANO Administration Hydromorphone HCl 0.5 mg 11/03/20 00:15 11/03/20 00:40 Hydromorphone 1 Mg/1 Ml Inj IV 0.5 mg Q3H PRN Administration Pain , Severe (7-10) Potassium Chloride/Sodium Chloride 20 meq in 1,000 mls @ 100 mls/hr 11/03/20 01:00 11/03/20 00:56 Ns 0.45/Kcl 20meq IV 100 mls/hr DIRECT LUCIANO Administration Ibuprofen 600 mg 11/02/20 22:24 11/02/20 22:36 Ibuprofen 600 Mg Tab PO 600 mg Q6H PRN Administration Pain, Mild (1-3) Lorazepam 0.5 mg 11/03/20 00:13 Lorazepam 0.5 Mg Tab PO Q6H PRN Anxiety Ondansetron HCl 4 mg 11/03/20 00:15 Ondansetron 4 Mg/2 Ml Inj IV Q8H PRN Nausea And Vomiting Oxycodone/Acetaminophen 1 tab 11/03/20 00:15 Oxycodone /Acetaminophen 5-325mg Tab PO Q6H PRN Pain, Moderate (4-6) Sodium Chloride 10 ml 11/03/20 01:00 11/03/20 00:59 Sodium Chloride 0.9% 10 Ml Flush Syringe IV 10 ml BID LUCIANO Administration Sodium Chloride 10 ml 11/03/20 00:15 Sodium Chloride 0.9% 10 Ml Flush Syringe IV PRN PRN LINE FLUSH Trazodone HCl 150 mg 11/03/20 00:15 11/03/20 00:25 Trazodone 100 Mg Tab PO 150 mg BID LUCIANO Administration
[2020-11-03] MEDS ORDERED: RIVAROXABAN 20 MG TAB PO SCH (10:00)
--- NOTE | 2020-11-03 13:08 | Vascular Lab Report ---
DUPLEX DOPPLER ULTRASOUND CAROTID, BILATERAL INDICATION / CLINICAL INFORMATION: stroke. COMPARISON: None available. FINDINGS: RIGHT CAROTID: - PLAQUE ESTIMATE (%): None. - CCA velocity: 92.5 cm/sec. - ICA peak systolic velocity: 87.3 cm/sec. - ICA/CCA PSV Ratio: 0.9 Right Vertebral Artery: Antegrade flow. LEFT CAROTID: - PLAQUE ESTIMATE: None. - CCA velocity: 92.5 cm/sec. - ICA peak systolic velocity: 83.9 cm/sec. - ICA/CCA PSV Ratio: 0.9 Left Vertebral Artery: Antegrade flow. IMPRESSION: 1. Right Internal Carotid Artery: Normal. No stenosis. 2. Left Internal Carotid Artery: Normal. No stenosis. Velocity criteria are extrapolated from diameter data as defined by the Society of Radiologists in Ul trasound Consensus Conference, Radiology 2003; 229;340-346. NO STENOSIS (NORMAL) * Plaque = none; ICA PSV < 125 cm/sec; ICA/CCA PSV Ratio < 2.0 <50% STENOSIS * Plaque < 50%; ICA PSV < 125 cm/sec; ICA/CCA PSV Ratio < 2.0 50-69% STENOSIS * Plaque > 50%; ICA PSV = 125-230 cm/sec; ICA/CCA PSV Ratio = 2.0-4.0 >70% BUT <100% STENOSIS * Plaque > 50%; ICA PSV > 230 cm/sec; ICA/CCA PSV Ratio > 4.0 NEAR OCCLUSION * Plaque = visible lumen; ICA PSV = high/low/none; ICA/CCA PSV Ratio = variable TOTAL OCCLUSION * Plaque = no lumen; ICA PSV = none; ICA/CCA PSV Ratio = N/A Signer Name: Sukumar Rasmussen MD Signed: 11/03/2020 1:04 PM Workstation Name: [id number]
[2020-11-03] MEDS ORDERED: LORazepam 2 MG/ML VIAL IV ONE (13:28)
--- NOTE | 2020-11-03 15:02 | Consultation ---
History of Present Illness Consult date: 11/03/20 History of present illness: Patient is at MRI during rounds. Will followup in AM. Past History Past Medical History: GERD, other (Generalized anxiety disorder and depression.) Past Surgical History: No surgical history Social history: lives with family, full code Family history: hypertension Medications and Allergies Allergies Allergy/AdvReac Type Severity Reaction Status Date / Time No Known Allergies Allergy Unverified 11/02/20 13:51 Home Medications Medication Instructions Recorded Confirmed Last Taken Type Famotidine [Pepcid] 20 mg PO BID 11/02/20 11/02/20 11/01/20 History LORazepam [Ativan] 0.5 mg PO Q6HR PRN 11/02/20 11/02/20 11/02/20 History Rivaroxaban [Xarelto] 20 mg PO QDAY 11/02/20 11/02/20 11/02/20 10:00 History Trazodone HCl [traZODone] 150 mg PO BID 11/02/20 11/02/20 11/01/20 History Active Meds: Active Medications Acetaminophen (Acetaminophen 325 Mg Tab) 650 mg PO Q4H PRN PRN Reason: Pain MILD(1-3)/Fever >100.5/ROBLES Famotidine (Famotidine 20 Mg Tab) 20 mg PO BID LUCIANO Last Admin: 11/03/20 10:03 Dose: 20 mg Documented by: Hydromorphone HCl (Hydromorphone 1 Mg/1 Ml Inj) 0.5 mg IV Q3H PRN PRN Reason: Pain , Severe (7-10) Last Admin: 11/03/20 10:07 Dose: 0.5 mg Documented by: Potassium Chloride/Sodium Chloride (Ns 0.45/Kcl 20meq) 20 meq in 1,000 mls @ 100 mls/hr IV DIRECT LUCIANO Last Admin: 11/03/20 10:49 Dose: 100 mls/hr Documented by: Ibuprofen (Ibuprofen 600 Mg Tab) 600 mg PO Q6H PRN PRN Reason: Pain, Mild (1-3) Last Admin: 11/02/20 22:36 Dose: 600 mg Documented by: Lorazepam (Lorazepam 0.5 Mg Tab) 0.5 mg PO Q6H PRN PRN Reason: Anxiety Ondansetron HCl (Ondansetron 4 Mg/2 Ml Inj) 4 mg IV Q8H PRN PRN Reason: Nausea And Vomiting Oxycodone/Acetaminophen (Oxycodone /Acetaminophen 5-325mg Tab) 1 tab PO Q6H PRN PRN Reason: Pain, Moderate (4-6) Sodium Chloride (Sodium Chloride 0.9% 10 Ml Flush Syringe) 10 ml IV BID [facility] Last Admin: 11/03/20 10:04 Dose: 10 ml Documented by: Sodium Chloride (Sodium Chloride 0.9% 10 Ml Flush Syringe) 10 ml IV PRN PRN PRN Reason: LINE FLUSH Trazodone HCl (Trazodone 100 Mg Tab) 150 mg PO BID [facility] Last Admin: 11/03/20 10:03 Dose: Not Given Documented by: Physical Examination - Vital Signs Vital Signs: Vital Signs Pulse Resp Pulse Ox 80 21 98 11/02/20 13:21 11/02/20 13:21 11/02/20 13:21 Results - Laboratory Findings CBC and BMP: 11/03/20 04:32 11/03/20 04:32 Abnormal Lab Findings: Abnormal Labs 11/02/20 11/02/20 11/02/20 13:16 13:16 13:16 MCHC 35 H RDW 17.6 H Lymph % (Auto) [place] % (Auto) 9.1 H PT 21.8 H INR 1.84 H Sodium 135 L Hemoglobin A1c Total Protein 11/03/20 11/03/20 11/03/20 04:32 04:32 04:32 MCHC RDW 17.9 H Lymph % (Auto) 42.0 H [place] % (Auto) 11.7 H PT INR Sodium Hemoglobin A1c 3.9 L Total Protein 6.1 L
--- NOTE | 2020-11-03 15:27 | Magnetic Resonance Report ---
MR brain wo/w con INDICATION / CLINICAL INFORMATION: 39 years Female; Acute CVA/neuro symptoms/rec by neuro Dr. Honeycutt, LT SIDED WEAKNESS AND SLURRED SPEE CH. TECHNIQUE: Multiplanar, multisequence MR images of the brain were obtained. COMPARISON: No previous MRI exams available for comparison. FINDINGS: BRAIN / INTRACRANIAL CONTENTS: On the FLAIR sequence, there are multiple scattered hyperintense foci involving the cerebral white matter which is nonspecific though may reflect microvascular angiopathy, advanced for the patient's age at.. The diffusion imaging reveals no evidence of acute infarction. There is mild asymmetry of the lateral ventricles which is felt to be developmental. No obstructing l esions are identified. No extra-axial fluid collections or significant mass effect is appreciated at. No intracranial enhancing lesions are identified. CRANIOCERVICAL JUNCTION: No significant abnormality. VASCULAR FLOW-VOIDS: No significant abnormality. ORBITS: No significant abnormality of visualized orbits. SINUSES / MASTOIDS: No significant abnormality in the visualized paranasal sinuses or mastoid air suzan ls. ADDITIONAL FINDINGS: None. IMPRESSION: 1. There are multiple a scattered nonspecific hyperintense foci involving the cerebral white matter a s detailed above at. There is no evidence of recent infarction. Signed Signer Name: Reinaldo Shanks MD Signed: 11/03/2020 3:23 PM Workstation Name: [id number]
[2020-11-03] MEDS ORDERED: ALPRAZolam 0.25 MG TAB PO PRN (18:33)
--- NOTE | 2020-11-03 18:38 | Event Note ---
Date: 11/03/20 I spoke with patient's Mr. Delfin Aguilera in patient's room on the speaker phone where patient's nurse, patient and her could hear clearly. I explained in detail patient's condition, all the test reports and especially MRI report, and they wanted to talk to the neurologist. I encouraged them to call back tomorrow when the neurologist is available. Did have some questions answered all of them. Neuro work-up so far; -MRI brain with and without contrast: findings; multiple scattered nonspecific hyper intense foci involving the cerebral white matter as detailed above no evidence of recent infarctions Multiple scattered hyperintense foci involving the cerebral white matter which is nonspecific though may reflect microvascular angiopathy advanced for the patient's age the diffusion imaging reveals no evidence of acute infarction there is a mild asymmetry of the lateral ventricle which is felt to be developmental no obstructing lesions are identified no extra-axial fluid collections or significant mass-effect is appreciated, no intracranial enhancing lesions are identified . Identified MRI brain -CT head without contrast ; intracerebral hemorrhage no stroke -CTA head ; no acute abnormality -CTA neck; no occlusion or significant stenosis -Echocardiogram; ejection fraction normal 55-60 60 %, bubble study no PFO -Carotid Doppler; no hemodynamically significant stenosis Neurology evaluation recommendations noted and appreciated We will closely monitor the patient and adjust the management as needed Plan of care reviewed with the patient and her nurse Patient has some anxiety; will treat with low-dose Xanax as needed Consider psych evaluation if no improvement
[2020-11-03] MEDS ORDERED: ALPRAZolam 0.25 MG TAB PO ONE (19:33)
[2020-11-04] MEDS: HYDROmorphone 1 MG/1 ML INJ IV PRN (04:49)
[2020-11-04 05:38] LABS: Chol/HDL Ratio 2.35 %
[2020-11-04 08:45] VITALS: BP 119/79
--- NOTE | 2020-11-04 09:14 | Consultation ---
History of Present Illness Consult date: 11/04/20 Reason for Consult: CVA Chief complaint: Shortness of breath with left-sided weakness/numbness History of present illness: 39 yo female on anticoagulation for underlying hypercoaguability presents with shortness of breath with left-sided weakness/numbness. She notes she still continues to experience intermittent shortness of breath and still feels weak with the left arm/leg. Notes a mild to moderate headache (<8/10) that is worse with tension/stress. Currently she states she is worried about the MRI Brain results. Past History Past Medical History: GERD, other (Generalized anxiety disorder and depression.) Past Surgical History: No surgical history Social history: lives with family, full code Family history: hypertension Medications and Allergies Allergies Allergy/AdvReac Type Severity Reaction Status Date / Time No Known Allergies Allergy Unverified 11/02/20 13:51 Home Medications Medication Instructions Recorded Confirmed Last Taken Type Famotidine [Pepcid] 20 mg PO BID 11/02/20 11/02/20 11/01/20 History LORazepam [Ativan] 0.5 mg PO Q6HR PRN 11/02/20 11/02/20 11/02/20 History Rivaroxaban [Xarelto] 20 mg PO QDAY 11/02/20 11/02/20 11/02/20 10:00 History Trazodone HCl [traZODone] 150 mg PO BID 11/02/20 11/02/20 11/01/20 History Active Meds: Active Medications Acetaminophen (Acetaminophen 325 Mg Tab) 650 mg PO Q4H PRN PRN Reason: Pain MILD(1-3)/Fever >100.5/ROBLES Alprazolam (Alprazolam 0.25 Mg Tab) 0.25 mg PO Q8H PRN PRN Reason: Anxiety Last Admin: 11/04/20 09:00 Dose: 0.25 mg Documented by: Famotidine (Famotidine 20 Mg Tab) 20 mg PO BID LUCIANO Last Admin: 11/03/20 21:26 Dose: 20 mg Documented by: Hydromorphone HCl (Hydromorphone 1 Mg/1 Ml Inj) 0.5 mg IV Q3H PRN PRN Reason: Pain , Severe (7-10) Last Admin: 11/04/20 04:49 Dose: 0.5 mg Documented by: Ibuprofen (Ibuprofen 600 Mg Tab) 600 mg PO Q6H PRN PRN Reason: Pain, Mild (1-3) Last Admin: 11/02/20 22:36 Dose: 600 mg Documented by: Ondansetron HCl (Ondansetron 4 Mg/2 Ml Inj) 4 mg IV Q8H PRN PRN Reason: Nausea And Vomiting Oxycodone/Acetaminophen (Oxycodone /Acetaminophen 5-325mg Tab) 1 tab PO Q6H PRN PRN Reason: Pain, Moderate (4-6) Sodium Chloride (Sodium Chloride 0.9% 10 Ml Flush Syringe) 10 ml IV BID [facility] Last Admin: 11/03/20 21:26 Dose: 10 ml Documented by: Sodium Chloride (Sodium Chloride 0.9% 10 Ml Flush Syringe) 10 ml IV PRN PRN PRN Reason: LINE FLUSH Trazodone HCl (Trazodone 100 Mg Tab) 150 mg PO BID [facility] Last Admin: 11/03/20 21:27 Dose: 150 mg Documented by: Review of Systems All systems: negative (as per HPI;) Physical Examination - Vital Signs Vital Signs: Vital Signs Pulse Resp Pulse Ox 80 21 98 11/02/20 13:21 11/02/20 13:21 11/02/20 13:21 - Physical Exam Narrative exam: Gen: nad, well-nourished; Head: normocephalic; Eyes: no gaze deviation; no ptosis; ENT: normal vocalization; CVS: warm and well-perfused; Pulm: no respiratory distress; GI: appears non-distended, protuberant; Ext: no cyanosis or edema at distal extremities; Skin: no acute rash or hives at distal extremities; Heme: no pathologic bruising or ecchymosis at distal extremities; Neuro: alert, oriented to name, not month (october), year, surroundings, no dysarthria, no aphasia, CN 2 - PERRL, visual love grossly intact, CN 3, 4, 6 - EOMI, CN 5 - facial sensation decreased on left to light touch, CN 7 - facial movement symmetric when at rest or with conversation but decreased on the left w/ activation, CN 8 - hearing grossly intact, CN 9, 10 - uvula midline, CN 11 - shrug symmetric, CN 12 - tongue deviated to the right; Motor - at least 4+/5 at right exts and at least 3-/5 on the left (variable strength w/ variable effort); Sensory - light touch decreased at left arm/leg, Cerebellar - fnf /hts intact deficit on left due to weakness, Gait - deferred secondary to fall risk; Results - Laboratory Findings CBC and BMP: 11/03/20 04:32 11/03/20 04:32 Abnormal Lab Findings: Abnormal Labs 11/02/20 11/02/20 11/02/20 13:16 13:16 13:16 MCHC 35 H RDW 17.6 H Lymph % (Auto) Stewart % (Auto) 9.1 H PT 21.8 H INR 1.84 H Sodium 135 L Hemoglobin A1c Total Protein HDL Cholesterol 11/03/20 11/03/20 11/03/20 04:32 04:32 04:32 MCHC RDW 17.9 H Lymph % (Auto) 42.0 H Stewart % (Auto) 11.7 H PT INR Sodium Hemoglobin A1c 3.9 L Total Protein 6.1 L HDL Cholesterol 11/04/20 03:58 MCHC RDW Lymph % (Auto) Stewart % (Auto) PT INR Sodium Hemoglobin A1c Total Protein HDL Cholesterol 80 H Assessment and Plan 39 yo female on anticoagulation for underlying hypercoaguability presents with shortness of breath with left-sided weakness/numbness. She notes she still continues to experience intermittent shortness of breath and still feels weak with the left arm/leg. Notes a mild to moderate headache (<8/10) that is worse with tension/stress. MRI Brain findings are nonspecific and seen with microvascular ischemic changes, headache syndrome, or underlying htn, dm, hld, or vasculopathy. 1. Conversion Disorder - secondary to underlying anxiety disorder; recommend psychiatry evaluation. 2. Anxiety Disorder - per psychiatry. 3. Tension Headache - conservative treatment w/ tyelnol, cold compresses, etc. 4. Left Hemiparesis - pt/ot evaluation/monitoring as part of behavioral therapy. 5. No further acute neurologic workup indicated at present. Followup with Neurology in 4 to 6 weeks. Neurology will signoff. Darius Honeycutt MD Neurology CPT: [id number]
[2020-11-04] MEDS: FAMOTIDINE 20 MG TAB PO SCH (09:34)
[2020-11-04] MEDS: traZODone 100 MG TAB PO SCH (09:34)
--- NOTE | 2020-11-04 12:31 | Discharge Summary ---
Providers - Providers Date of Admission: 11/02/20 15:03 Date of discharge: 11/04/20 Attending physician: JORGE SAUNDERS 11/03/20 00:15 Consult to Physician [CONS] Routine Comment: Consulting Provider: JABIER JULES Physician Instructions: Reason For Exam: TIA vs CVA 11/03/20 00:23 Occupational Therapy Evaluate and Treat [CONS] Routine Comment: Reason For Exam: Neuro deficits Physical Therapy Evaluation and Treat [CONS] Routine Comment: Reason For Exam: Neuro deficits Primary care physician: INTAKE MANAGER Hospitalization Reason for admission: Shortness of breath with left-sided weakness/numbness Condition: Fair Pertinent studies: -MRI brain with and without contrast: findings; multiple scattered nonspecific hyper intense foci involving the cerebral white matter as detailed above no evidence of recent infarctions Multiple scattered hyperintense foci involving the cerebral white matter which is nonspecific though may reflect microvascular angiopathy advanced for the patient's age the diffusion imaging reveals no evidence of acute infarction there is a mild asymmetry of the lateral ventricle which is felt to be developmental no obstructing lesions are identified no extra-axial fluid collections or significant mass-effect is appreciated, no intracranial enhancing lesions are identified . Identified MRI brain -CT head without contrast ; intracerebral hemorrhage no stroke -CTA head ; no acute abnormality -CTA neck; no occlusion or significant stenosis -Echocardiogram; ejection fraction normal 55-60 60 %, bubble study no PFO -Carotid Doppler; no hemodynamically significant stenosis Hospital course: 39 yo female with history of chronic anticoagulation for her underlying hypercoaguability was admitted through emergency room with shortness of breath and left-sided weakness and numbness, patient was not a candidate for TPA, patient had extensive neuro work-up subsequently evaluated by neurologist, extensive neuro work-up reports as mentioned above. Neurology has advised to continue current anticoagulation due to her hypercoagulability which requires her to be on lifelong anticoagulation, with close monitoring with her primary care physician, intake manager, follow-up with outpatient neurologist periodically. Patient received physical therapy and Occupational Therapy and both therapists have recommended home health PT and OT, case management has set up home health PT and OT prior to her discharge Today patient is comfortable no new complaints vital signs stable, physical examination prior to discharge did not show any new changes Patient is hemodynamically and clinically stable at discharge Discharge diagnosis: --Possible acute CVA Current Visit: Yes Status: Acute Plan to address problem: Extensive neuro work-up done, Findings as mentioned above Neurology evaluated patient, Advised the patient to continue anticoagulation as she has hypercoagulability, With close monitoring by primary care physician, intake manager and outpatient neurologist PT and OT evaluate the patient and both recommended home health PT and OT --History of PE and DVT; 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 Psych consult if needed --Obesity; BMI 37.1 Current Visit: Yes Status: Chronic Patient needs weight reduction Social workers/case management set up home health with home PT and OT Patient is hemodynamically and clinically stable at discharge Disposition: [id number] HOME UNDER HOME HLTH Final Discharge Diagnosis (Prints w/discharge instructions): Neuro symptoms. Acute CVA ruled out. Severe anxiety. GERD. History of PE. Depression. Obesity BMI 37.1 Time spent for discharge: 35 min Core Measure Documentation - Palliative Care Palliative Care/ Comfort Measures: Not Applicable - Core Measures Any of the following diagnoses?: none Exam - Constitutional Vitals: Temp Pulse Resp BP Pulse Ox 98.2 F 70 18 119/79 100 11/04/20 08:16 11/04/20 08:16 11/04/20 08:16 11/04/20 08:16 11/04/20 08:16 General appearance: Present: no acute distress, well-nourished, obese - EENT Eyes: Present: PERRL, EOM intact - Neck Neck: Present: supple, normal ROM - Respiratory Respiratory effort: normal Respiratory: bilateral: rales, rhonchi, wheezing - Cardiovascular Rhythm: regular Heart Sounds: Present: S1 & S2 - Extremities Extremities: no ischemia, No edema - Abdominal General gastrointestinal: Present: soft, non-tender, non-distended, normal bowel sounds - Integumentary Integumentary: Present: clear, warm - Musculoskeletal Musculoskeletal: strength equal bilaterally, generalized weakness - Psychiatric Psychiatric: appropriate mood/affect, cooperative - Neurologic Neurologic: moves all extremities Plan Activity: advance as tolerated, fall precautions Diet: regular Additional Instructions: Fall precautions. If you have worsening symptoms contact MD or go to emergency room. Advised to see your private neurologist Dr. Ranadive within 1 week. Advised to see psychologist/psychiatrist Dr. Velasquez if you have severe anxiety Follow up with: PRIMARY CAREMD [Primary Care Provider] - 7 Days KAREN VELASQUEZ MD [Staff Physician] - 7 Days Prescriptions: ALPRAZolam [Xanax TAB] 0.25 mg PO Q8H PRN #15 tablet PRN Reason: Anxiety
== END 2020-11-04 13:16 | disposition home health service (06) ==
LOC: ED 12:58 → EEVIPCON 15:03 → 4A 15:03
PROVIDERS: ADMIT Internal Medicine; ATTEND Internal Medicine
DX: I63.9 Cerebral infarction, unspecified (principal); K21.9 Gastro-esophageal reflux disease without esophagitis; F32.9 Major depressive disorder, single episode, unspecified; R47.1 Dysarthria and anarthria; R29.90 Unspecified symptoms and signs involving the nervous system; R53.1 Weakness; I10 Essential (primary) hypertension; R29.707 NIHSS score 7; G44.209 Tension-type headache, unspecified, not intractable; G81.94 Hemiplegia, unspecified affecting left nondominant side; F44.4 Conversion disorder with motor symptom or deficit; F41.1 Generalized anxiety disorder; F17.210 Nicotine dependence, cigarettes, uncomplicated; E66.9 Obesity, unspecified; Z68.37 Body mass index [BMI] 37.0-37.9, adult; Z86.711 Personal history of pulmonary embolism; Z86.718 Personal history of other venous thrombosis and embolism; Z79.899 Other long term (current) drug therapy
CPT/HCPCS: 36415; 70450; 70496; 70498; 70553; 80053; 80061; 80307; 81001; 82550; 82553; 82962; 83036; 84443; 84484; 85025; 85610; 85670; 85730; 93005; 93306; 93880; 96361; 96374; 96375; 96376; 97116; 97161; 97165; 99291; 99406; A9575; G0378; J1170; J2060; J2270; Q9967; 80320; G0480